=== PATIENT | male | born 1955 | race Caucasian/White ===

== ENCOUNTER 2018-07-10 20:07 | Outpatient (REF) | payer MEDICAID, SELFPAY ==
[2018-07-10 21:19] LABS: Abs Immature Grans 0.01 k/cumm (0.0-0.09); Absolute Basophil Count 0.02 k/cumm (0.0-0.2); Absolute Eosinophil Count 0.09 k/cumm (0.0-0.7); Absolute Monocyte Count 0.58 k/cumm (0.11-0.7); Basophils % 0.3; Eosinophils % 1.4; HCT 35.2 % (40.0-50.0); HGB 11.9 g/dL (13.5-17.5); Immature Grans % 0.2; Lymphocytes % 34.8; Mean Corp. HGB Concentration 33.8 g/dL (32.0-36.0); Mean Corpuscular Hemoglobin 29.5 pg (27.0-33.0); Mean Corpuscular Volume 87.3 fL (80-95); Mean Platelet Volume 11.3 fL (8.0-11.0); Monocytes % 8.8; Neutrophils % 54.5; Platelet Count 214 x1000/uL (130-400); RBC 4.03 m/cumm (4.50-6.00); RBC Distribution Width 12.3 % (11.8-14.1)
[2018-07-10 21:29] LABS: ALT 27 U/L (12-78); AST 23 U/L (15-37); Albumin 4.1 g/dL (3.4-5.0); Alkaline Phosphatase 60 U/L (46-116); Bilirubin, Direct 0.08 mg/dL (0.00-0.20); Bilirubin, Total 0.3 mg/dL (0.2-1.0); Total Protein 6.9 g/dL (6.4-8.2)
[2018-07-12 15:35] LABS: Oxcarbazepine Metabolite, S 15 mcg/mL (3 - 35)
== END 2018-07-10 20:27 ==
LOC: LBN 20:07
PROVIDERS: PCP Internal Medicine; Visit Provider Psychiatry & Neurology Neurology
DX: R56.9 Unspecified convulsions (principal)
CPT/HCPCS: 80076; 80183; 85025

== ENCOUNTER 2018-07-30 18:14 | Outpatient (REF) | payer MEDICAID, SELFPAY ==
[2018-07-30 21:29] LABS: Cholesterol 183 mg/dL (50-200); HDL Cholesterol 73 mg/dL (40-60); LDL CHOLESTEROL 91 mg/dL (<100); Triglyceride 135 mg/dL (30-150)
== END 2018-07-30 18:34 ==
LOC: NCHCN 18:14
PROVIDERS: PCP Internal Medicine; Visit Provider Nurse Practitioner Family
DX: Z13.89 Encounter for screening for other disorder (principal)
CPT/HCPCS: 80061; 83721

== ENCOUNTER 2018-09-08 12:34 | Outpatient (REF) | payer MEDICAID, SELFPAY ==
[2018-09-08 22:16] LABS: Abs Immature Grans 0.02 k/cumm (0.0-0.09); Absolute Basophil Count 0.02 k/cumm (0.0-0.2); Absolute Eosinophil Count 0.05 k/cumm (0.0-0.7); Absolute Lymphocyte Count 1.73 k/cumm (1.2-3.4); Absolute Monocyte Count 0.48 k/cumm (0.11-0.7); Absolute Neutrophil Count 2.16 k/cumm (1.2-6.7); Basophils % 0.4; Eosinophils % 1.1; HCT 37.6 % (40.0-50.0); HGB 12.6 g/dL (13.5-17.5); Immature Grans % 0.4; Lymphocytes % 38.8; Mean Corp. HGB Concentration 33.5 g/dL (32.0-36.0); Mean Corpuscular Hemoglobin 30.1 pg (27.0-33.0); Mean Corpuscular Volume 89.7 fL (80-95); Mean Platelet Volume 10.1 fL (8.0-11.0); Monocytes % 10.8; Neutrophils % 48.5; Platelet Count 238 x1000/uL (130-400); RBC 4.19 m/cumm (4.50-6.00); RBC Distribution Width 12.5 % (11.8-14.1); White Blood Cell Count 4.46 k/cumm (4.4-10.8)
[2018-09-08 23:02] LABS: ALT 29 U/L (12-78); AST 24 U/L (15-37); Albumin 4.1 g/dL (3.4-5.0); Alkaline Phosphatase 57 U/L (46-116); Bilirubin, Direct 0.09 mg/dL (0.00-0.20); Bilirubin, Total 0.4 mg/dL (0.2-1.0); Total Protein 6.8 g/dL (6.4-8.2)
[2018-09-11 14:03] LABS: Oxcarbazepine Metabolite, S 15 mcg/mL (3 - 35)
== END 2018-09-08 12:54 ==
LOC: LBN 12:34
PROVIDERS: PCP Internal Medicine; Visit Provider Psychiatry & Neurology Neurology
DX: R56.9 Unspecified convulsions (principal); G40.109 Localization-related (focal) (partial) symptomatic epilepsy and epileptic syndromes with simple partial seizures, not intractable, without status epilepticus; Z51.81 Encounter for therapeutic drug level monitoring
CPT/HCPCS: 80076; 80183; 85025

== ENCOUNTER 2019-09-16 14:09 | Outpatient (REF) | payer MEDICAID, SELFPAY ==
[2019-09-16 16:31] LABS: HCT 36.6 % (40.0-50.0); HGB 12.3 g/dL (13.5-17.5); Mean Corp. HGB Concentration 33.6 g/dL (32.0-36.0); Mean Corpuscular Hemoglobin 30.8 pg (27.0-33.0); Mean Corpuscular Volume 91.7 fL (80-95); Mean Platelet Volume 10.5 fL (8.0-11.0); Platelet Count 216 x1000/uL (130-400); RBC 3.99 m/cumm (4.50-6.00); RBC Distribution Width 11.8 % (11.8-14.1); White Blood Cell Count 2.15 k/cumm (4.4-10.8)
[2019-09-16 16:38] LABS: ALT 28 U/L (16-63); AST 23 U/L (15-37); Albumin 4.4 g/dL (3.4-5.0); Alkaline Phosphatase 58 U/L (46-116); Anion Gap 4.9 mmol/L (3-11); BUN 10 mg/dL (7-18); Bilirubin, Total 0.4 mg/dL (0.2-1.0); CO2 32.1 mmol/L (21.0-32.0); CREATININE 0.61 mg/dL (0.70-1.30); Chloride 98 mmol/L (98-107); Glucose 76 mg/dL (74-106); Potassium 4.9 mmol/L (3.5-5.1); Sodium 135 mmol/L (136-145); Total Protein 7.2 g/dL (6.4-8.2)
== END 2019-09-16 14:29 ==
LOC: NCHCN 14:09
PROVIDERS: PCP Internal Medicine; Visit Provider Nurse Practitioner Family
DX: R56.9 Unspecified convulsions (principal); D64.9 Anemia, unspecified; Z86.19 Personal history of other infectious and parasitic diseases
CPT/HCPCS: 80053; 85027

== ENCOUNTER 2020-03-02 09:35 | Outpatient (REF) | payer MEDICARE, SELFPAY ==
[2020-03-02 20:50] LABS: Sodium 134 mmol/L (136-145)
[2020-03-05 11:40] LABS: Levetiracetam 51.7 mcg/mL
[2020-03-05 12:36] LABS: Lamotrigine 6.3 mcg/mL (2.5 - 15.0)
[2020-03-05 15:38] LABS: Oxcarbazepine Metabolite, S 15 mcg/mL (3 - 35)
== END 2020-03-02 09:55 ==
LOC: LBN 09:35
PROVIDERS: PCP Psychiatry & Neurology Neurology; Visit Provider Psychiatry & Neurology Neurology
DX: G40.109 Localization-related (focal) (partial) symptomatic epilepsy and epileptic syndromes with simple partial seizures, not intractable, without status epilepticus (principal); G06.0 Intracranial abscess and granuloma
CPT/HCPCS: 80175; 80183; 80177; 84295

== ENCOUNTER 2020-04-01 00:01 | Outpatient (REF) | payer MEDICARE, MEDICAID, SELFPAY ==
[2020-04-01 22:01] LABS: Sodium 133 mmol/L (136-145)
[2020-04-04 16:00] LABS: Lamotrigine 3.8 mcg/mL (2.5 - 15.0)
[2020-04-05 10:57] LABS: Oxcarbazepine Metabolite, S 13 mcg/mL (3 - 35)
== END 2020-04-01 00:21 ==
LOC: NCHCN 00:01
PROVIDERS: PCP Internal Medicine; Visit Provider Psychiatry & Neurology Neurology
DX: G40.109 Localization-related (focal) (partial) symptomatic epilepsy and epileptic syndromes with simple partial seizures, not intractable, without status epilepticus (principal); Z51.81 Encounter for therapeutic drug level monitoring; Z79.899 Other long term (current) drug therapy
CPT/HCPCS: 80175; 80183; 80177; 84295

== ENCOUNTER 2020-05-04 13:29 | Outpatient (REF) | payer MEDICARE, SELFPAY ==
[2020-05-04 19:48] LABS: Bilirubin Negative (Negative); Blood Negative (Negative); Clarity Clear (Clear); Glucose Negative (Negative); Ketones Negative (Negative); Leukocyte Esterase Negative (Negative); Nitrite Negative (Negative); Urobilinogen 0.2 EU/dL (Up TO 0.2)
[2020-05-04 19:49] LABS: Abs Immature Grans 0.01 k/cumm (0.0-0.09); Absolute Basophil Count 0.01 k/cumm (0.0-0.2); Absolute Eosinophil Count 0.04 k/cumm (0.0-0.7); Absolute Lymphocyte Count 0.69 k/cumm (1.2-3.4); Absolute Monocyte Count 0.33 k/cumm (0.11-0.7); Absolute Neutrophil Count 1.24 k/cumm (1.2-6.7); Basophils % 0.4; Eosinophils % 1.7; HCT 39.2 % (40.0-50.0); HGB 13.3 g/dL (13.5-17.5); Immature Grans % 0.4 %; Lymphocytes % 29.7; Mean Corp. HGB Concentration 33.9 g/dL (32.0-36.0); Mean Corpuscular Hemoglobin 30.9 pg (27.0-33.0); Mean Platelet Volume 10.4 fL (8.0-11.0); Monocytes % 14.2; Neutrophils % 53.6; Platelet Count 194 x1000/uL (130-400); RBC 4.31 m/cumm (4.50-6.00); RBC Distribution Width 12.2 % (11.8-14.1); White Blood Cell Count 2.32 k/cumm (4.4-10.8)
[2020-05-04 20:01] LABS: ALT 26 U/L (16-63); AST 22 U/L (15-37); Albumin 4.6 g/dL (3.4-5.0); Alkaline Phosphatase 57 U/L (46-116); Anion Gap 6.2 mmol/L (3-11); BUN 9 mg/dL (7-18); Bilirubin, Total 0.5 mg/dL (0.2-1.0); C-Reactive Protein 0.06 mg/dL (0.0-0.3); CO2 30.8 mmol/L (21.0-32.0); CREATININE 0.68 mg/dL (0.70-1.30); Chloride 98 mmol/L (98-107); Glucose 97 mg/dL (74-106); Potassium 4.3 mmol/L (3.5-5.1); Sodium 135 mmol/L (136-145); TSH (W/Ref FT4) 4.18 uIU/mL (0.36-3.74); Total Protein 7.5 g/dL (6.4-8.2)
[2020-05-04 20:47] LABS: FREE T4 0.76 ng/dL (0.76-1.46)
[2020-05-06 10:32] LABS: PSA, Screening 0.9 ng/mL (0.0-4.5)
[2020-05-06 11:56] LABS: HIV-1/2 Ag & Ab Screen Negative (Negative)
== END 2020-05-04 13:49 ==
LOC: NCHCN 13:29
PROVIDERS: PCP Psychiatry & Neurology Neurology; Visit Provider Nurse Practitioner Family
DX: R61 Generalized hyperhidrosis (principal); Z12.5 Encounter for screening for malignant neoplasm of prostate; Z11.4 Encounter for screening for human immunodeficiency virus [HIV]
CPT/HCPCS: 80053; 84153; 87389; 81003; 84439; 84443; 85025; 86140

== ENCOUNTER 2020-12-05 20:22 | Outpatient (REF) | payer MEDICARE, MEDICAID, SELFPAY ==
[2020-12-05 21:06] LABS: HCT 37.5 % (40.0-50.0); HGB 12.3 g/dL (13.5-17.5); MCH 30.2 pg (27.0-33.0); MCHC 32.8 % (32.0-36.0); MCV 92.1 fL (80-95); MPV 10.9 fL (8.0-11.0); Platelet Count 172 10^3/uL (130-400); RBC 4.07 10^6/uL (4.36-5.78); RDW 11.6 % (11.8-14.1); RDW-SD 39.5 fL; WBC 2.51 10^3/uL (4.4-10.8)
[2020-12-05 21:21] LABS: ALT 26 U/L (16-63); AST 19 U/L (15-37); Albumin 4.1 g/dL (3.4-5.0); Alkaline Phosphatase 53 U/L (46-116); Anion Gap 5.5 mmol/L (3-11); BUN 12 mg/dL (7-18); Bilirubin, Total 0.4 mg/dL (0.2-1.0); CO2 31.5 mmol/L (21.0-32.0); CREATININE 0.7 mg/dL (0.70-1.30); Calcium 8.9 mg/dL (8.5-10.1); Chloride 101 mmol/L (98-107); Glucose 84 mg/dL (74-106); Potassium 4.8 mmol/L (3.5-5.1); Sodium 138 mmol/L (136-145); Total Protein 6.9 g/dL (6.4-8.2)
[2020-12-08 10:05] LABS: Levetiracetam 15.9 mcg/mL
[2020-12-08 10:19] LABS: Oxcarbazepine Metabolite, S 10 mcg/mL (10 - 35)
[2020-12-08 12:47] LABS: Lamotrigine 5.5 mcg/mL (2.5 - 15.0)
== END 2020-12-05 20:23 | disposition home or self-care (01) ==
LOC: NCHCN 20:22
PROVIDERS: Psychiatry & Neurology Neurology; PCP Internal Medicine; Visit Provider Nurse Practitioner Family
DX: G40.109 Localization-related (focal) (partial) symptomatic epilepsy and epileptic syndromes with simple partial seizures, not intractable, without status epilepticus (principal)
CPT/HCPCS: 80053; 80175; 80183; 85027; 80177

== ENCOUNTER 2021-01-19 14:38 | Outpatient (REF) | payer MEDICARE, MEDICAID, SELFPAY ==
[2021-01-19 20:29] LABS: Anion Gap 6.4 mmol/L (3-11); BUN 20 mg/dL (7-18); CO2 32.6 mmol/L (21.0-32.0); CREATININE 0.8 mg/dL (0.70-1.30); Calcium 9.3 mg/dL (8.5-10.1); Chloride 104 mmol/L (98-107); Glucose 98 mg/dL (74-106); Sodium 143 mmol/L (136-145)
== END 2021-01-19 14:39 | disposition home or self-care (01) ==
LOC: NCHCN 14:38
PROVIDERS: PCP Psychiatry & Neurology Neurology; Visit Provider Nurse Practitioner Family
DX: R79.89 Other specified abnormal findings of blood chemistry (principal)
CPT/HCPCS: 80048

== ENCOUNTER 2021-03-21 09:57 | Outpatient (REF) | payer MEDICARE, MEDICAID, SELFPAY ==
[2021-03-21 13:41] LABS: Abs Immature Grans 0.02 10^3/uL (0.0-0.06); Absolute Basophil Count 0.05 10^3/uL (0.0-0.2); Absolute Eosinophil Count 0.06 10^3/uL (0.0-0.7); Absolute Lymphocyte Count 0.74 10^3/uL (1.2-3.4); Absolute Neutrophil Count 3.62 10^3/uL (1.2-6.7); Eosinophils % 1.2; HCT 38.7 % (40.0-50.0); HGB 12.8 g/dL (13.5-17.5); Immature Grans % 0.4; Lymphocytes % 15.1; MCH 30.7 pg (27.0-33.0); MCHC 33.1 % (32.0-36.0); MCV 92.8 fL (80-95); MPV 10.5 fL (8.0-11.0); Monocytes % 8.2; Neutrophils % 74.1; Nucleated RBC 0 %; Platelet Count 208 10^3/uL (130-400); RBC 4.17 10^6/uL (4.36-5.78); RDW 11.6 % (11.8-14.1); RDW-SD 39.6 fL; WBC 4.89 10^3/uL (4.4-10.8)
[2021-03-21 14:11] LABS: ALT 24 U/L (16-63); AST 17 U/L (15-37); Albumin 4.3 g/dL (3.4-5.0); Alkaline Phosphatase 66 U/L (46-116); Anion Gap 7.7 mmol/L (3-11); BUN 15 mg/dL (7-18); Bilirubin, Total 0.5 mg/dL (0.2-1.0); CO2 32.3 mmol/L (21.0-32.0); CREATININE 0.8 mg/dL (0.70-1.30); Chloride 103 mmol/L (98-107); Glucose 89 mg/dL (74-106); Sodium 143 mmol/L (136-145); TSH (W/Ref FT4) 4.46 uIU/mL (0.36-3.74); Total Protein 7.3 g/dL (6.4-8.2)
[2021-03-21 14:33] LABS: FREE T4 0.73 ng/dL (0.76-1.46)
[2021-03-21 17:17] LABS: Ferritin 129 ng/mL (26-388); Vitamin B12 1144 pg/mL (193-986)
[2021-03-21 17:18] LABS: Folate > 20.0 ng/mL (8.6-20.0)
[2021-03-21 22:26] LABS: PSA, Screening 1.3 ng/mL (0.0-4.5)
== END 2021-03-21 09:58 | disposition home or self-care (01) ==
LOC: NCHCN 09:57
PROVIDERS: PCP Psychiatry & Neurology Neurology; Visit Provider Nurse Practitioner Family
DX: D64.9 Anemia, unspecified (principal); R56.9 Unspecified convulsions; R61 Generalized hyperhidrosis; N40.0 Benign prostatic hyperplasia without lower urinary tract symptoms; Z12.5 Encounter for screening for malignant neoplasm of prostate; Z79.899 Other long term (current) drug therapy
CPT/HCPCS: 80053; 84153; 82607; 82728; 82746; 84439; 84443; 85025

== ENCOUNTER 2021-05-02 12:15 | Outpatient (REF) | payer MEDICARE, MEDICAID, SELFPAY ==
[2021-05-02 15:13] LABS: HCT 37.4 % (40.0-50.0); HGB 12.7 g/dL (13.5-17.5); MCH 30.9 pg (27.0-33.0); MPV 10.7 fL (8.0-11.0); Platelet Count 154 10^3/uL (130-400); RBC 4.11 10^6/uL (4.36-5.78); RDW 11.6 % (11.8-14.1); WBC 2.74 10^3/uL (4.4-10.8)
[2021-05-02 15:44] LABS: TSH 2.92 uIU/mL (0.36-3.74)
== END 2021-05-02 12:16 | disposition home or self-care (01) ==
LOC: NCHCN 12:15
PROVIDERS: PCP Psychiatry & Neurology Neurology; Visit Provider Nurse Practitioner Family
DX: E03.9 Hypothyroidism, unspecified (principal); D64.9 Anemia, unspecified
CPT/HCPCS: 85027; 84443